=== PATIENT | female | born 1950 | race African-American/Black ===

== ENCOUNTER 2021-10-25 06:53 | Day surgery (SDC) | payer OTHER, MEDICARE ==
[2021-10-25] MEDS ORDERED: Ringers Lactate 1,000 ML IV ONE (07:14)
[2021-10-25 07:27] LABS: Absolute Lymphocytes (CBC) 67.9 K/uL (0.7-4.9); Hematocrit 41.3 % (36.0-45.0); Lymphocytes % 90.4 % (15.3-44.8); RBC Red Blood Cell Count 4.31 M/uL (3.86-4.86)
[2021-10-25] MEDS ORDERED: BUPIVACAINE 0.5% PF 10 ML VIAL ONE ×2 (08:17→09:17)
[2021-10-25] MEDS ORDERED: FENTANYL CITR 100 MCG/2 ML ONE (08:24)
[2021-10-25] MEDS ORDERED: LIDOCAINE 2% MPF 5 ML VIAL ONE (08:24)
[2021-10-25] MEDS ORDERED: propofoL 200 MG/20 ML VIAL IV ONE (08:24)
[2021-10-25] MEDS ORDERED: dexAMETHasone 4 MG/ML VIAL ONE (08:25)
[2021-10-25] MEDS ORDERED: KETOROLAC 30 MG/ML INJ ONE (08:25)
[2021-10-25] MEDS ORDERED: MIDAZOLAM HCL 2 MG/2 ML INJ ONE (08:25)
[2021-10-25] MEDS ORDERED: ONDANSETRON 4 MG/2 ML VIAL ONE (08:25)
[2021-10-25] MEDS ORDERED: CEFAZOLIN/NS 1gm 1 GM/50 ML BAG ONE (08:26)
--- NOTE | 2021-10-25 09:42 | P.BOP ---
Preoperative diagnosis: infected Left upper back subQ mass 5x5cm with abscess Postoperative diagnosis: same Primary procedure: Excisional biopsy infected Left upper back subQ mass 5x5cm with abscess Estimated blood loss: <10cc Specimen: mass, deep abscess culture Findings: mass, multiloculated abscess Anesthesia: General Complications: None Drain(s): Other (wet to dry NS) Transferred to: Recovery Room Condition: Good
--- NOTE | 2021-10-25 09:48 | RAD REPORT ---
EXAM DESCRIPTION: RAD - Chest Pa And Lat (2 Views) - 10/25/2021 7:54 am CLINICAL HISTORY: PRE-OP Chest pain. COMPARISON: No comparisons FINDINGS: The lungs are clear. The heart is upper limit of normal in size. No displaced fractures.
[2021-10-25 09:49] VITALS: TEMP 97.6; O2SAT 99
[2021-10-25] MEDS ORDERED: CODEINE 30MG/APAP 300MG TAB PO ONE (10:31)
[2021-10-25] MEDS ORDERED: CODEINE 30MG/APAP 300MG TAB ONE (10:37)
[2021-10-25 10:50] VITALS: BP 124/78
[2021-10-25 12:02] LABS: Blood Morphology Comment NOT SEEN (NOT SEEN); Platelet Estimate ADEQ
--- NOTE | 2021-10-26 17:43 | EKG ---
Test Date: 2021-10-25 Test Time: 07:11:18 Meat [employer] And Slicer: PRAKASH MEASUREMENT RESULTS: Intervals: Rate: 84 [place]: 144 QRSD: 78 QT: 380 QTc: 449 [place]: P: 63 NJ: 144 QRS: 18 T: 42 INTERPRETIVE STATEMENTS: Normal sinus rhythm Normal ECG Compared to ECG 02/20/1998 14:23:00 No significant changes Electronically Signed On 10-26-21 17:41:45 DOG BATHER by Ghassan Leung
== END 2021-10-25 11:10 | disposition home or self-care (01) ==
LOC: OR 06:53
PROVIDERS: ATTEND Surgery
PROC: 0JB70ZZ Excision of Back Subcutaneous Tissue and Fascia, Open Approach (ICD-10-PCS; principal; 2021-10-25 08:30)
DX: L72.0 Epidermal cyst (principal); L02.212 Cutaneous abscess of back [any part, except buttock and flank]; Z20.822 Contact with and (suspected) exposure to COVID-19
CPT/HCPCS: 93005; 87070; 85025; 80048; 36415; 87205; 88304; 87075; 71046; 11406; U0003; J2704; J1100; J2250; J3010; J0690; J7120; J2405

== ENCOUNTER → 2025-05-12 | Day surgery (SDC) | payer OTHER, MEDICARE ==
--- NOTE | 2025-05-12 11:21 | RAD REPORT ---
EXAMINATION: ULTRASOUND GUIDED VACUUM-ASSISTED LEFT BREAST CORE NEEDLE BIOPSY LEFT breast core needle biopsy; percutaneous, using ultrasound guidance. Image guided placement, metallic localization clip, percutaneous. Post Bx mammogram: LEFT Dx Mammogram. CLINICAL INDICATION:. N63.21 INFORMED CONSENT: The risks, benefits, alternatives, and potential complications of ultrasound guided vacuum-assisted LEFT breast biopsy were discussed with the patient. An informed consent sheet was signed. The risks include but are not limited to the following: bleeding, infection, vascular injury, organ injury, pneumothorax, allergic reaction, and the need for emergent surgery/procedures. BIOPSY TARGET: LEFT breast, Lateral approach. Left breast mass as was seen on the ultrasound from 05/02. NEEDLE: 12 gauge Celero vacuum-assisted core biopsy needle, 4 cores. SEDATION: None. COMPLICATIONS: None. TECHNIQUE: Appropriate audible time out was performed. The skin was prepped and draped in the normal fashion. The soft tissues were anesthetized with lidocaine. Utilizing real-time ultrasound guidance, a vacuum-assisted core biopsy needle was placed into the breast location described below wi th removal of tissue for pathology evaluation. Metallic clip was placed within the biopsied lesion under ultrasound guidance. Compression was held. Hemostasis was achieved. Sterile dressing was applie d. Patient tolerated the procedure well without immediate complication. The technologist was in the room with the radiologist throughout the procedure. IMPRESSION: 1.Successful ultrasound guided vacuum-assisted core biopsy of the LEFT breast as described above. 2. Biopsy clip placed within the biopsied lesion.
--- NOTE | 2025-05-12 13:25 | RAD REPORT ---
EXAM DESCRIPTION: S/P CLIP PLACEMENT UNI COMPARISON: Procedural images of ultrasound-guided core biopsy of the same day. TECHNIQUE: Full field CC and MLO views of the left breast were obtained utilizing digital breast 3D t omosynthesis technique. Computer-aided detection was utilized. FINDINGS: Postbiopsy changes are present, with postbiopsy clip in satisfactory location in [location] to the target lesion. No hematoma. IMPRESSION: Postprocedural mammogram for clip localization as above. Density: B: There are scattered areas of fibroglandular density. *A negative x-ray report should not delay biopsy if a dominant or clinically suspicious mass is prese nt. 4.8% of cancers are not identified by x-ray. *A negative report may reinforce clinical impression. *Adenosis and dense breasts may obscure an underlying neoplasm. *False positive reports average 6-10%.
== END ==
LOC: DS 09:29
PROVIDERS: ATTEND Physician Assistant
DX: C50.912 Malignant neoplasm of unspecified site of left female breast (principal); Z17.0 Estrogen receptor positive status [ER+]; Z17.21 Progesterone receptor positive status
CPT/HCPCS: 19083; 77065; 88305

== ENCOUNTER 2025-07-09 05:59 | Day surgery (SDC) | payer OTHER, MEDICARE ==
--- NOTE | 2025-07-08 09:03 | RAD REPORT ---
EXAMINATION: TWO VIEW CHEST XR CLINICAL INDICATION: pre op for day surgery TECHNIQUE: 2 views of the chest was performed. COMPARISON: No prior exam. FINDINGS: The lungs are well inflated and clear. The heart is upper limit of normal in size. No displaced fract ures evident. IMPRESSION: No acute or significant abnormalities.
[2025-07-09] MEDS: NA CHLORIDE 0.9% 1,000 ML ONE ×2 (06:30→12:10)
--- NOTE | 2025-07-09 08:01 | RAD REPORT ---
EXAM:Lymphoscintigraphy CLINICAL HISTORY: Breast cancer TECHNIQUE: 2 intradermal injections, injected at lateral and medial aspects of the left breast of total 260 uCi LYMPHOSEEK IMPRESSION ;LYMPHOSCINTIGARAYHY
[2025-07-09] MEDS ORDERED: LIDOCAINE 2% MPF 5 ML VIAL ONE (11:05)
[2025-07-09] MEDS ORDERED: FENTANYL CITR 100 MCG/2 ML ONE ×2 (11:05→11:59)
[2025-07-09] MEDS ORDERED: MIDAZOLAM HCL 2 MG/2 ML INJ ONE (11:05)
[2025-07-09] MEDS: CEFAZOLIN SODIUM 1 GM/VIAL ONE (11:31)
[2025-07-09] MEDS ORDERED: NS 0.9% VIAL 10 ML ONE (11:33)
[2025-07-09] MEDS: METHYLENE BLUE 1% 10 ML VIAL ONE (11:45)
[2025-07-09] MEDS ORDERED: Mastisol Adhesive Liq ONE (12:56)
--- NOTE | 2025-07-09 13:03 | P.BOP ---
Preoperative diagnosis: left breast invasive ductal carcinoma Postoperative diagnosis: same Primary procedure: Left breast lumpectomy needle localized with sentinel LN biopsy Estimated blood loss: <50cc Specimen: sentinel LN, breast lump with needle Findings: sentinel LN negative for malignancy per dr nicholson Anesthesia: General Complications: None Drain(s): BALDOMERO drain (axilla) Transferred to: Recovery Room Condition: Good
[2025-07-09] MEDS: HYDROMORPHONE HCL 0.5 MG/0.5 ML INJ ONE (13:53)
[2025-07-09] MEDS: CODEINE 30MG/APAP 300MG TAB ONE (14:50)
[2025-07-09] MEDS: ONDANSETRON 4 MG/2 ML VIAL ONE (15:10)
[2025-07-09 16:18] VITALS: BP 133/74; O2SAT 98
[2025-07-09 16:21] VITALS: TEMP 97.1
--- NOTE | 2025-07-09 17:51 | RAD REPORT ---
Exam: Breast preop NL wire with guidance CLINICAL HISTORY: Breast mass TECHNIQUE: The skin and deeper tissues anesthetized with lidocaine. Under sonographic guidance a needle was advanced into the mass within the outer left breast. A Kopans hookwire was then placed through the needle into the mass and the needle removed. IMPRESSION: Sonographic guidance with wire placement into the left breast mass
--- NOTE | 2025-07-09 17:54 | RAD REPORT ---
Exam: Surgical specimen CLINICAL HISTORY: Breast mass TECHNIQUE: Sonographic evaluation of the resected breast tissue left breast performed. The approximately 1.5 cm hypoechoic mass lies within the resected breast tissue IMPRESSION: The left breast mass has been resected and lies within the specimen
--- NOTE | 2025-07-11 15:13 | OP ---
Surgeon: Cesar Hannon MD Preoperative Diagnosis: Left breast invasive ductal carcinoma. Postoperative Diagnosis: Left breast invasive ductal carcinoma. Procedure: Left breast lumpectomy, needle localized with sentinel lymph node biopsy. Estimated Blood Loss: Less than 50 cc. Specimens: [place] lymph node with the breast lump with needle. Findings: [place] lymph node negative for malignancy per Dr. Oconnor. Some of the lymph node that w e sent with the specimen will be sent in another way to be analyzed by another technique since the azalea patel has history of CLL. Anesthesia: General plus local. Drainage: BALDOMERO #10 in the axillary area. Indications: This is the case of a female with history of CLL, also found to have a left breast inva sive ductal carcinoma, seen by Dr. Woodard for two of those cancers. The pros and cons of which cance r to treat first was discussed with the patient. It was decided in a team approach to do the left br east lumpectomy needle localized with sentinel lymph node biopsy possible axillary dissection with be nefits, alternatives, and risks including, but not limited to, infection, bleeding, damage to adjacen t structures, anesthesia complication, recurrence, CT, and even . She also understands the risk s of lymphedema. She understand this may not relieve any symptoms, she might need more than one surg ical intervention. She understands the importance of following up with her oncologist after. The azalea patel preferred a breast conservative treatment, not the mastectomy at this moment. Description Of Procedure: The patient was brought to the hospital this morning. She received a left breast lymphoscintigraphy by Dr. Weinstein. She also received localization of the lesion by Dr. Matty luna this morning. After that, the patient was brought to the OR, allowed the medication to go throug h. With the help of the Neoprobe, we were able to localize the sentinel lymph node. At that moment, we noted she was ready. So, we brought her to the OR, placed in the supine position. Anesthesia w as given without complication. Time-out was called. Left breast and axillary area were prepped and draped in a sterile fashion. After that, we proceeded to chapo the axillary line with the Neoprobe. We were able to localize the sentinel lymph node. Please refer to the sentinel lymph node numbers t hat we are going to have there the timing, the initial count, the in situ count, the ex vivo count, a nd the 10-minute count of the Neoprobe numbers. Thus after we made an incision and go all the way do wn to the axillary fat pad, identified the sentinel lymph node based on the numbers described and the document attached to this dictation. Then, after that, we proceeded then to remove the specimen. D ue to the large area and the amount of fat tissue, I preferred to leave this BALDOMERO drain in that region. So I did left a small BALDOMERO drain in that area. Remember this patient also has previous lymphadenopat hy from the CLL disease. So, I am not sure how good those lymph nodes are working. At this moment, I preferred to left the BALDOMERO drain that minimized the chance of seroma. The BALDOMERO drain was exited throu gh a different incision. Then, after that, we proceeded to irrigate the area, made sure we have comp lete hemostasis, closed the subcutaneous tissue with the 3-0 chromic and the skin with omayra. Spon ge counts and instrument counts were correct. At that moment, Dr. Oconnor already called us and ident ified the lymph node, identified some of the lymph nodes over that area. The sentinel nodes were neg ative for breast metastatic disease. The rest of the lymph nodes will be sent for another technique since we are also dealing with CLL. At that moment, then we brought the patient table down to be abl e to do a lumpectomy, all this time we saved a wire to make sure it is not pulled. We then made an i ncision. Some of the skin of the areola have to be removed since there is some indentation in the sk in that seemed not to be attached, but the lesion seems to be closed. So, some of the areola have to be removed. So, we removed that in a wedge fashion, removed the lump with needle in the middle. Ob tained hemostasis. We sent the specimen to the radiologist who confirmed the lesion within the speci men by Dr. Weinstein. At that moment, we irrigated the area once again and then closed the area with a combination of a Monocryl and then 4-0 PDS in a running fashion. Sponge counts and instrument count s were correct. The patient tolerated the procedure well. The patient sent to recovery in stable condition. Good pe ripheral pulses. HM/MODL Voice ID: [id number] Report ID: [id number]
--- NOTE | 2025-07-11 15:18 | DS ---
Date of Discharge: 07/09/2025 Diagnosis: Left breast invasive ductal carcinoma. Procedure: Left breast lumpectomy needle localized with sentinel lymph node biopsy. Condition: Stable. Disposition: Home. Activity: As tolerated. No heavy lifting. Discharge Instructions: Follow up in my office in 1 week. Keep dressings intact if possible. If sh e has to remove the dressings, then replace everything the way it is. At this moment, we explained t o her also how to drain the BALDOMERO drain. We asked her to record output q.24 hours. Medication previous ly called the pharmacy. DALLAS/ANGIE Voice ID: [id number] Report ID: [id number]
== END 2025-07-09 16:10 | disposition home or self-care (01) ==
LOC: OR 05:59
PROVIDERS: ATTEND Surgery
PROC: 07B60ZX Excision of Left Axillary Lymphatic, Open Approach, Diagnostic (ICD-10-PCS; 2025-07-09)
PROC: 0HBU0ZZ Excision of Left Breast, Open Approach (ICD-10-PCS; principal; 2025-07-09 10:30)
DX: D05.12 Intraductal carcinoma in situ of left breast (principal)
CPT/HCPCS: 19285; 71046; 76098; 78195; 82947; 88305; 93005; A4216; A9520; J0690; J1171; J2003; J2250; J2405; J2704; J3010; J7030